=== PATIENT | male | born 1970 | race Caucasian/White ===

== ENCOUNTER 2022-11-14 06:55 | Day surgery (SDC) | payer BC, OTHER ==
[~2022-11-14 06:55] MED LIST: Lactated Ringers 1,000 ML IV SCH; Lidocaine 1%/Sod Bicarbonate in NS 8.4% 1 ML Syringe IDERM PRN; Midazolam 1 MG/ML 2 ML SDV ONE; Ondansetron 4 MG/2 ML SDV ONE; Propofol 200 MG/20 ML SDV ONE; Sodium Chloride 0.9% 10 ML Syringe FLUSH PRN; Sodium Chloride 0.9% 10 ML Syringe FLUSH SCH; fentaNYL 100 MCG/2 ML SDV ONE
[2022-11-14] MEDS ORDERED: Bupivacaine 0.25% 10 ML SDV ONE (07:16)
[2022-11-14] MEDS ORDERED: Lidocaine 1% 10 ML MDV ONE (07:16)
[2022-11-14] MEDS ORDERED: Ondansetron 4 MG/2 ML SDV IVPUSH PRN (08:22)
[2022-11-14] MEDS ORDERED: HYDROmorphone 0.5 MG/0.5 ML Syringe IVPUSH PRN (08:22)
== END 2022-11-14 09:45 | disposition home or self-care (01) ==
LOC: JD.SDS 06:55
PROVIDERS: ATTEND Orthopaedic Surgery
DX: G56.02 Carpal tunnel syndrome, left upper limb (principal); G56.12 Other lesions of median nerve, left upper limb; Z79.899 Other long term (current) drug therapy; Z98.890 Other specified postprocedural states; Z87.891 Personal history of nicotine dependence
CPT/HCPCS: 01810; J2250; J2405; J2704; J3010; J3490; J7120

== ENCOUNTER 2023-08-31 07:20 | Day surgery (SDC) | payer BC ==
[~2023-08-31 07:20] MED LIST changes: +EPINEPHrine 1 MG/ML SDV ONE; -Lactated Ringers 1,000 ML IV SCH; -Lidocaine 1%/Sod Bicarbonate in NS 8.4% 1 ML Syringe IDERM PRN; -Midazolam 1 MG/ML 2 ML SDV ONE; -Ondansetron 4 MG/2 ML SDV ONE; -Propofol 200 MG/20 ML SDV ONE; -fentaNYL 100 MCG/2 ML SDV ONE
[2023-08-31] MEDS ORDERED: Ropivacaine 0.5% 5 MG/ML 30 ML SDV ONE ×2 (07:21→08:28)
[2023-08-31] MEDS: Lactated Ringers 1,000 ML IV SCH (07:40)
[2023-08-31] MEDS ORDERED: Dexamethasone 4 MG/ML 5 ML MDV ONE (08:30)
[2023-08-31] MEDS ORDERED: Lidocaine 1% 5 ML VIAL ONE (08:32)
[2023-08-31] MEDS ORDERED: Propofol 200 MG/20 ML SDV ONE (09:12)
[2023-08-31] MEDS ORDERED: Ketorolac 30 MG/ML SDV ONE (09:12)
[2023-08-31] MEDS ORDERED: Ondansetron 4 MG/2 ML SDV ONE (09:12)
[2023-08-31] MEDS ORDERED: Midazolam 1 MG/ML 2 ML SDV ONE (09:12)
[2023-08-31] MEDS ORDERED: fentaNYL 100 MCG/2 ML SDV ONE (09:12)
[2023-08-31] MEDS ORDERED: ceFAZolin 2 GM Vial ONE (09:24)
[2023-08-31] MEDS: EPINEPHrine 1 MG/ML SDV ONE (10:15)
[2023-08-31] MEDS ORDERED: Lactated Ringers 1,000 ML ONE (10:16)
[2023-08-31] MEDS ORDERED: Acetaminophen/HYDROcodone 325-5 MG Tab PO PRN (11:00)
[2023-08-31] MEDS ORDERED: Ondansetron 4 MG/2 ML SDV IVPUSH PRN (11:03)
[2023-08-31] MEDS ORDERED: fentaNYL 100 MCG/2 ML SDV IVPUSH PRN (11:03)
[2023-08-31] MEDS ORDERED: HYDROmorphone 0.5 MG/0.5 ML Syringe IVPUSH PRN (11:03)
== END 2023-08-31 12:40 | disposition home or self-care (01) ==
LOC: JD.SDS 07:20
PROVIDERS: ATTEND Orthopaedic Surgery
DX: S43.432A Superior glenoid labrum lesion of left shoulder, initial encounter (principal); M75.22 Bicipital tendinitis, left shoulder; M75.42 Impingement syndrome of left shoulder; Z90.49 Acquired absence of other specified parts of digestive tract; Z87.891 Personal history of nicotine dependence
CPT/HCPCS: 29807; 29828; 64415; C1713; J0171; J0690; J1100; J1885; J2250; J2405; J2704; J2795; J3010; J7120; 01630; J3490